=== PATIENT | male | born 1965 | race Caucasian/White ===

== ENCOUNTER 2018-07-20 14:35 | Emergency (ER) | payer OTHER ==
[~2018-07-20] VITALS: Ht 180.3 cm; Wt 117.9 kg
[~2018-07-20 14:35] MED LIST: HYDR1TAB94 PO; IBUP800; SIMV10 PO; TRAM50 PO; [UNRECOGNIZED DRUG - REMARK]; [UNRECOGNIZED DRUG - REMARK]
[2018-07-20] MEDS ORDERED: Roxicodone5 MG PO (15:41)
== END 2018-07-20 16:50 | disposition home or self-care (01) ==
LOC: ER 14:35
DX: R07.81 Pleurodynia (principal); R05 Cough; Z88.5 Allergy status to narcotic agent
CPT/HCPCS: 71046; 99283-25

== ENCOUNTER 2020-04-17 12:44 | Emergency (ER) | payer OTHER ==
[~2020-04-17] VITALS: Ht 180.3 cm; Wt 117.9 kg
[~2020-04-17 12:44] MED LIST changes: +Amoxicillin875 MG PO; +Roxicodone5 MG PO
[2020-04-17] MEDS ORDERED: IBUP800 PO (13:19)
[2020-04-17 14:05] LABS: BASOPHILS ABSOLUTE AUTO 0.08 K/mm3 (0.00-0.23); BASOPHILS PERCENT AUTO 1 % (0-2); EOSINOPHILS ABSOLUTE AUTO 0.22 K/mm3 (0.00-0.68); EOSINOPHILS PERCENT AUTO 4 % (0-6); Hematocrit 45.7 % (37.0-53.0); Hemoglobin 15.4 g/dL (13.5-17.5); IMMATURE GRAN ABSOLUTE AUTO 0.02 K/mm3 (0.00-0.10); IMMATURE GRAN PERCENT AUTO 0 % (0-1); LYMPHOCYTES ABSOLUTE AUTO 1.47 K/mm3 (0.84-5.20); LYMPHOCYTES PERCENT AUTO 23 % (21-46); MONOCYTES ABSOLUTE AUTO 0.57 K/mm3 (0.16-1.47); MONOCYTES PERCENT AUTO 9 % (4-13); Mean Corpuscular HGB 30.3 pg (26.0-34.0); Mean Corpuscular HGB Conc 33.7 g/dL (31.5-36.5); Mean Corpuscular Volume 90 fL (80-100); Mean Platelet Volume 11.5 fL (9.1-12.4); NEUTROPHILS ABSOLUTE AUTO 3.94 K/mm3 (1.96-9.15); NEUTROPHILS PERCENT AUTO 63 % (41-73); Platelet Count 168 K/mm3 (150-400); RDW Coefficient Variation 12.6 % (11.7-14.2); RDW Standard Deviation 41.5 fL (35.1-46.3); Red Blood Cell Count 5.09 M/mm3 (4.30-5.90)
[2020-04-17 14:24] LABS: Alanine Aminotransfer (ALT/SGP 42 U/L (12-78); Albumin/Globulin Ratio 1.1 (0.8-1.8); Alk Phos 65 U/L (50-136); Anion Gap 4 mmol/L (6-16); Aspartate Aminotrans (AST/SGOT 26 U/L (12-37); Bilirubin, Total 0.8 mg/dL (0.1-1.0); Blood Urea Nitrogen 17 mg/dL (8-24); Bun/Creatinine Ratio 17.2 (12.0-20.0); CO2, Blood 29 mmol/L (21-32); Calcium, Blood 8.7 mg/dL (8.5-10.1); Chloride, Blood 107 mmol/L (98-108); Creatinine, Blood 0.99 mg/dL (0.60-1.20); Globulin, Blood 3.5 g/dL (2.2-4.0); Glomerular Filtration Rate >60 (60-); Glucose, Blood 118 mg/dL (70-99); Potassium, Blood 4.3 mmol/L (3.5-5.5); Sodium, Blood 140 mmol/L (136-145); Total Protein, Blood 7.5 g/dL (6.4-8.2)
== END 2020-04-17 15:22 | disposition home or self-care (01) ==
LOC: ER 12:44
PROVIDERS: Emergency Medicine
DX: S82.64XA Nondisplaced fracture of lateral malleolus of right fibula, initial encounter for closed fracture (principal); R53.1 Weakness; Z88.5 Allergy status to narcotic agent; Z20.828 Contact with and (suspected) exposure to other viral communicable diseases; W18.30XA Fall on same level, unspecified, initial encounter
CPT/HCPCS: 29515; 36415; 71045; 73610; 80053; 85025; 93005; 93010; 96361-59; 96374-59; 99285-25; J1885; J7030

== ENCOUNTER 2020-06-16 05:17 | Emergency (ER) | payer OTHER ==
[~2020-06-16] VITALS: Ht 180.3 cm; Wt 116.1 kg
[~2020-06-16 05:17] MED LIST changes: +IBUP800 PO
[2020-06-16] MEDS ORDERED: PRED20 PO (10:42)
[2020-06-16] MEDS ORDERED: CLIN300 PO (10:42)
== END 2020-06-16 10:51 | disposition home or self-care (01) ==
LOC: ER 05:17
DX: T78.3XXA Angioneurotic edema, initial encounter (principal)
CPT/HCPCS: 36415; 96365; 96375; 99283-25; J1100; J1200

== ENCOUNTER 2021-02-13 12:43 | Day surgery (SDC) | payer OTHER ==
[~2021-02-13] VITALS: Ht 180.3 cm; Wt 116.5 kg
[~2021-02-13 12:43] MED LIST changes: +BREO ELLIPTA 11 EAC1 INH; +CLIN300 PO; +LOSA25 PO; +PRED20 PO; +ZOCOR20 MG PO
== END 2021-02-13 14:52 | disposition home or self-care (01) ==
LOC: ORSCSDS 12:43
PROVIDERS: Internal Medicine Gastroenterology
PROC: 0DBK8ZX Excision of Ascending Colon, Via Natural or Artificial Opening Endoscopic, Diagnostic (ICD-10-PCS; principal; 2021-02-13 14:00)
PROC: 0DBM8ZX Excision of Descending Colon, Via Natural or Artificial Opening Endoscopic, Diagnostic (ICD-10-PCS; principal; 2021-02-13 14:00)
PROC: 0DBC8ZX Excision of Ileocecal Valve, Via Natural or Artificial Opening Endoscopic, Diagnostic (ICD-10-PCS; principal; 2021-02-13 14:00)
DX: Z12.11 Encounter for screening for malignant neoplasm of colon (principal); D12.2 Benign neoplasm of ascending colon; D12.4 Benign neoplasm of descending colon; K64.8 Other hemorrhoids; Z86.010 Personal history of colon polyps; J44.9 Chronic obstructive pulmonary disease, unspecified; I10 Essential (primary) hypertension; E66.9 Obesity, unspecified; Z68.35 Body mass index [BMI] 35.0-35.9, adult; Z79.899 Other long term (current) drug therapy
CPT/HCPCS: 88305; J2704; J7120

== ENCOUNTER 2021-05-30 07:44 | Emergency (ER) | payer OTHER ==
[~2021-05-30] VITALS: Ht 180.3 cm; Wt 106.6 kg
[2021-05-30] MEDS ORDERED: BENZONATATE100 MG PO (10:12)
[2021-05-30] MEDS ORDERED: Ventolin/Prove6.7 GM INH (10:12)
[2021-05-30] MEDS ORDERED: BREO ELLIPTA 11 EAC1 IH (10:12)
[2021-05-30] MEDS ORDERED: IPRAT-ALBUT 0.5-3 ML IH (10:14)
[2021-05-30] MEDS ORDERED: LOSARTAN POTASS25 M2 PO (10:14)
[2021-05-30 10:48] LABS: BASOPHILS ABSOLUTE AUTO 0.08 K/mm3 (0.00-0.23); BASOPHILS PERCENT AUTO 1 % (0-2); EOSINOPHILS ABSOLUTE AUTO 0.41 K/mm3 (0.00-0.68); EOSINOPHILS PERCENT AUTO 7 % (0-6); Hematocrit 45.1 % (37.0-53.0); Hemoglobin 15.1 g/dL (13.5-17.5); IMMATURE GRAN ABSOLUTE AUTO 0.03 K/mm3 (0.00-0.10); IMMATURE GRAN PERCENT AUTO 1 % (0-1); LYMPHOCYTES ABSOLUTE AUTO 1.31 K/mm3 (0.84-5.20); LYMPHOCYTES PERCENT AUTO 23 % (21-46); MONOCYTES ABSOLUTE AUTO 0.63 K/mm3 (0.16-1.47); MONOCYTES PERCENT AUTO 11 % (4-13); Mean Corpuscular HGB 30.1 pg (26.0-34.0); Mean Corpuscular HGB Conc 33.5 g/dL (31.5-36.5); Mean Corpuscular Volume 90 fL (80-100); Mean Platelet Volume 12.1 fL (9.1-12.4); NEUTROPHILS ABSOLUTE AUTO 3.22 K/mm3 (1.96-9.15); NEUTROPHILS PERCENT AUTO 57 % (41-73); Platelet Count 165 K/mm3 (150-400); RDW Coefficient Variation 12.8 % (11.7-14.2); RDW Standard Deviation 41.9 fL (35.1-46.3); Red Blood Cell Count 5.02 M/mm3 (4.30-5.90); White Blood Cell Count 5.68 K/mm3 (4.00-11.30)
[2021-05-30 11:05] LABS: Alanine Aminotransfer (ALT/SGP 89 U/L (12-78); Albumin, Blood 3.5 g/dL (3.4-5.0); Albumin/Globulin Ratio 0.9 (0.8-1.8); Alk Phos 66 U/L (50-136); Anion Gap 5 mmol/L (6-16); Aspartate Aminotrans (AST/SGOT 36 U/L (12-37); Bilirubin, Total 0.4 mg/dL (0.1-1.0); Blood Urea Nitrogen 12 mg/dL (8-24); Bun/Creatinine Ratio 13.7 (12.0-20.0); CO2, Blood 28 mmol/L (21-32); Calcium, Blood 8.9 mg/dL (8.5-10.1); Chloride, Blood 105 mmol/L (98-108); Creatinine, Blood 0.88 mg/dL (0.60-1.20); Globulin, Blood 3.9 g/dL (2.2-4.0); Glomerular Filtration Rate >60 (60-); Glucose, Blood 143 mg/dL (70-99); Potassium, Blood 4.8 mmol/L (3.5-5.5); Sodium, Blood 138 mmol/L (136-145); Total Protein, Blood 7.4 g/dL (6.4-8.2)
[2021-05-30] MEDS ORDERED: AZIT250 PO (11:19)
[2021-05-30] MEDS ORDERED: PRED20 PO (11:19)
[2021-05-30] MEDS ORDERED: Q-Tussin100 MG/5 M PO (11:31)
== END 2021-05-30 11:49 | disposition home or self-care (01) ==
LOC: ER 07:44
PROVIDERS: Physician Assistant
DX: J06.9 Acute upper respiratory infection, unspecified (principal); Z88.5 Allergy status to narcotic agent
CPT/HCPCS: 36415; 71046; 80053; 85025; 99283-25

== ENCOUNTER 2021-06-05 11:34 | Emergency (ER) | payer OTHER ==
[~2021-06-05] VITALS: Ht 170.2 cm; Wt 81.7 kg
[~2021-06-05 11:34] MED LIST changes: +AZIT250 PO; +BENZONATATE100 MG PO; +BREO ELLIPTA 11 EAC1 IH; +IPRAT-ALBUT 0.5-3 ML IH; +LOSARTAN POTASS25 M2 PO; +Q-Tussin100 MG/5 M PO; +Ventolin/Prove6.7 GM INH
[2021-06-05 12:30] LABS: BASOPHILS ABSOLUTE AUTO 0.08 K/mm3 (0.00-0.23); BASOPHILS PERCENT AUTO 1 % (0-2); EOSINOPHILS ABSOLUTE AUTO 0.26 K/mm3 (0.00-0.68); EOSINOPHILS PERCENT AUTO 4 % (0-6); Hematocrit 45.9 % (37.0-53.0); Hemoglobin 15.3 g/dL (13.5-17.5); IMMATURE GRAN ABSOLUTE AUTO 0.06 K/mm3 (0.00-0.10); IMMATURE GRAN PERCENT AUTO 1 % (0-1); LYMPHOCYTES PERCENT AUTO 23 % (21-46); MONOCYTES ABSOLUTE AUTO 0.44 K/mm3 (0.16-1.47); MONOCYTES PERCENT AUTO 7 % (4-13); Mean Corpuscular HGB 30.1 pg (26.0-34.0); Mean Corpuscular HGB Conc 33.3 g/dL (31.5-36.5); Mean Corpuscular Volume 90 fL (80-100); Mean Platelet Volume 12.1 fL (9.1-12.4); NEUTROPHILS ABSOLUTE AUTO 4.23 K/mm3 (1.96-9.15); NEUTROPHILS PERCENT AUTO 64 % (41-73); Platelet Count 180 K/mm3 (150-400); RDW Coefficient Variation 12.5 % (11.7-14.2); RDW Standard Deviation 41.1 fL (35.1-46.3); Red Blood Cell Count 5.08 M/mm3 (4.30-5.90); White Blood Cell Count 6.57 K/mm3 (4.00-11.30)
[2021-06-05 12:56] LABS: Alanine Aminotransfer (ALT/SGP 127 U/L (12-78); Albumin, Blood 3.4 g/dL (3.4-5.0); Albumin/Globulin Ratio 0.9 (0.8-1.8); Alk Phos 69 U/L (50-136); Anion Gap 3 mmol/L (6-16); Aspartate Aminotrans (AST/SGOT 38 U/L (12-37); Bilirubin, Total 0.4 mg/dL (0.1-1.0); Blood Urea Nitrogen 20 mg/dL (8-24); Bun/Creatinine Ratio 20.8 (12.0-20.0); CO2, Blood 30 mmol/L (21-32); Calcium, Blood 8.7 mg/dL (8.5-10.1); Chloride, Blood 105 mmol/L (98-108); Creatinine, Blood 0.96 mg/dL (0.60-1.20); Globulin, Blood 3.6 g/dL (2.2-4.0); Glomerular Filtration Rate >60 (60-); Glucose, Blood 191 mg/dL (70-99); Potassium, Blood 4.4 mmol/L (3.5-5.5); Sodium, Blood 138 mmol/L (136-145); Troponin I <0.015 ng/mL (0.000-0.040)
[2021-06-05 13:13] LABS: Influenza A, PCR NEGATIVE (NEGATIVE); Influenza B, PCR NEGATIVE (NEGATIVE); Resp Syncytial Virus, PCR NEGATIVE (NEGATIVE); SARS-Cov-2 (COVID-19) PCR, MMC NEGATIVE (NEGATIVE)
== END 2021-06-05 15:00 | disposition home or self-care (01) ==
LOC: ER 11:34
PROVIDERS: Physician Assistant
DX: J45.909 Unspecified asthma, uncomplicated (principal); Z88.5 Allergy status to narcotic agent; Z79.899 Other long term (current) drug therapy; Z20.822 Contact with and (suspected) exposure to COVID-19
CPT/HCPCS: 0241U; 36415; 71046; 80053; 83880; 84484; 85025; 93005; 93010; 94640; 99284-25